=== PATIENT | male | born 1980 | race Caucasian/White ===

== ENCOUNTER 2022-11-09 07:08 | Emergency (ER) | payer BC, SELFPAY ==
[2022-11-09] VITALS (16 sets, daily range): BP systolic 124–207; BP diastolic 62–89; PULSE 54–87; RESP 14–18; TEMP 36.6; O2SAT 98–100
--- NOTE | ~2022-11-09 | CT_ITS ---
EXAMINATION: CTA chest abdomen pelvis DATE: 11/09/2022 10:21 INDICATION: Chest and abdominal pain TECHNIQUE: Computed tomographic angiography (CTA) of the chest, abdomen, and pelvis was performed wit h 100 mL Omnipque-350 intravenous contrast. Maximum intensity projection 3D-reconstructions of the ao rta and other arteries were constructed by the technologist on a separate workstation. The dose-lengt h product (DLP) was 1166.09 mGy-cm. Automated exposure control and iterative reconstruction technique were employed. COMPARISON: None. FINDINGS: CHEST CTA: No aneurysm or dissection. There is mild dependent atelectasis. There is a 7 mm nodule of the right l ower lobe. No pleural effusion or pneumothorax. No pathologically enlarged thoracic lymph nodes are i dentified. The heart size is normal. There are changes of anterior fusion at C6-7. ABDOMEN AND PELVIS CTA: No aneurysm or dissection. The celiac axis, superior mesenteric artery, and inferior mesenteric arter y are normal at their origins. There are two left and one right renal arteries. The liver, spleen, pa ncreas, gallbladder, and adrenal glands are normal. The kidneys are unremarkable. No pathologically e nlarged abdominal or pelvic lymph nodes are identified. No free intraperitoneal gas or evidence of natanael wel obstruction. IMPRESSION: 1. No aneurysm or dissection of the aorta. 2. No acute abnormality of the chest, abdomen, or pelvis. Reviewed, dictated and finalized at location F.
--- NOTE | ~2022-11-09 | XR_ITS ---
EXAMINATION: XR chest 2V DATE: 11/09/2022 08:20 INDICATION: Chest pain TECHNIQUE: PA and lateral views of the chest are obtained. COMPARISON: None available FINDINGS: The lungs are free of acute opacities. No pleural effusion or pneumothorax. The cardiomedia stinal silhouette is normal. There is mild thoracic spondylosis. There are surgical changes of the lo wer cervical spine. IMPRESSION: 1. No acute cardiopulmonary abnormality. Reviewed, dictated and finalized at location F.
--- NOTE | 2022-11-09 07:14 | ECG_ITS ---
Measurements Intervals [place] Rate: 57 P: 58 TN: 174 QRS: -52 QRSD: 118 T: 54 QT: 410 QTc: 401 Interpretive Statements SINUS BRADYCARDIA LEFT ANTERIOR FASCICULAR BLOCK [QRS AXIS <= -45, QR IN I, RS IN II] ABNORMAL ECG NO PREVIOUS ECG AVAILABLE FOR COMPARISON Electronically Signed On 11-09-2022 9:30:14 CDT by Jose Martin Jones M.D.
[2022-11-09] MEDS: ASPIRIN 81 MG CHEWABLE TABLET 324 MG PO (07:42)
[2022-11-09] MEDS: NITROGLYCERIN SL 0.4 MG TABLET SUBLINGUAL (07:43)
--- NOTE | 2022-11-09 07:44 | ED.CHESTPAIN ---
HPI - Chest Pain General Chief Complaint: Chest Pain Stated Complaint: chest pressure Time Seen by Provider: 11/09/22 07:10 Source: patient and RN notes reviewed Mode of arrival: ambulatory Limitations: no limitations History of Present Illness HPI narrative: This is a 42 year old male who presents for evaluation of chest pain. Patient states he developed chest [place] He states this pressure has been nonradiating and constant. He is unable to state what makes pain better or worse. He states that he has tried taking his Xanax due to history of anxiety. He reports his blood pressure has been more elevated to 150s and HR up to the 90s. He denies associated shortness of breath, dizziness, nausea, vomiting. He takes testosterone supplementation to build muscle mass. HE also takes another medication for muscle mass. Denies calf pain or leg swelling. Related Data Allergies Allergy/AdvReac Type Severity Reaction Status Date / Time No Known Allergies Allergy Verified 11/09/22 07:23 Review of Systems Constitutional: Constitutional: Denies weakness Cardiovascular: Cardiovascular: Reports chest pain, Denies syncope, Denies rapid heart rate, Denies irregular heart rhythm, Denies leg edema and Denies dyspnea Respiratory: Respiratory: Denies chest congestion, Denies hemoptysis, Denies excessive phlegm production and Denies dyspnea Gastrointestinal: Gastrointestinal: Denies abdominal pain, Denies hematochezia, Denies diarrhea and Denies vomiting Genitourinary: Genitourinary: Denies hematuria, Denies dysuria, Denies penile discharge and Denies testicular pain Musculoskeletal: Musculoskeletal: Denies joint swelling, Denies loss of height and Denies muscle weakness Neurologic: Denies syncope, Denies focal weakness and Denies weakness PMFSH Past Medical History Medical History (Updated 11/09/22 @ 11:23 by Talia Amado MD) Anxiety Social History Social History (Updated 11/09/22 @ 07:45 by Talia Amado MD) Smoking status: Never smoker Alcohol intake: current Alcohol use details: socially Substance use: never Exam Const: General: no acute distress and alert Nutritional Appearance: well nourished Orientation/consciousness: patient oriented x3 Limitations: no limitations HENMT: Head: normal to inspection Face and sinus: normal facial exam Eyes: EOM: EOMs intact bilaterally Chest: Chest palpation & inspection: normal inspection of the chest Resp: Effort & Inspection: normal respiratory effort Auscultation: clear to auscultation bilaterally Cardio: Rate: regular rate Rhythm: regular rhythm Heart sounds: no murmurs GI: GI Palp: Yes Soft to palpation, No Tenderness to palpation present (GI), No Guarding due to palpation present (GI) and No Rigid due to palpation Auscultation: normal bowel sounds Back/Spine/Pelvis: Back: no CVA tenderness Skin: General skin exam: normal color Rashes: no rashes Wounds: no wounds Neuro: General: patient oriented x3, moves all extremities and CN's II-XI intact bilaterally Extrem: General: normal to inspection, no clubbing, cyanosis or edema and no pedal edema Psych: Mental Status: mental status grossly normal Affect: normal affect Attitude: cooperative Course Reevaluation(s) Reevaluation #1: I Discussed with patient that labs and imaging have been unremarkable. No IN. Heart score 1 so will discharge. Pain is not anginal. I recommend discussion with doctors about hold his testosterone. Date: 11/09/22 Time: 11:22 Vital Signs Vital signs: Vital Signs Temperature 98 F 11/09/22 07:16 Pulse Rate 69 11/09/22 07:16 Respiratory Rate 18 11/09/22 07:16 Blood Pressure 151/89 H 11/09/22 07:16 Pulse Oximetry 100 11/09/22 07:16 Oxygen Delivery Room Air 11/09/22 07:16 Temperature 97.9 F 11/09/22 08:53 Pulse Rate 55 L 11/09/22 11:01 Respiratory Rate 16 11/09/22 11:01 Blood Pressure 151/79
[2022-11-09 07:52] LABS: Basophils Percent Auto 0.2 % (0.2-1.2); Eosinophils Absolute Auto 0.1 K/mm3 (0-0.3); Eosinophils Percent Auto 1.1 % (0-4.4); Hematocrit 45.5 % (42.0-52.0); Immature Granulocyte Absolute 0.01 K/mm3 (0.00-0.031); Immature Granulocyte Percent A 0.2 % (0-0.5); Immature Platelet Fraction Pct 4.1 % (0.9-11.2); Lymphocytes Absolute Auto 0.76 K/mm3 (0.9-3.2); Lymphocytes Percent Auto 17.1 % (18.3-44.2); Mean Corpuscular HGB Conc 35.2 g/dl (32-36); Mean Corpuscular Hemoglobin 31.6 pg (26-34); Mean Corpuscular Volume 89.7 fl (80-100); Mean Platelet Volume 10.1 fl (7.4-10.4); Monocytes Absolute Auto 0.5 K/mm3 (0.1-0.6); Monocytes Percent Auto 10.3 % (2.6-8.5); Neutrophils Absolute Auto 3.2 K/mm3 (1.3-6.7); Neutrophils Percent Auto 71.1 % (45.5-73.1); Platelet Count Result 142 k/mm3 (150-375); Red Blood Count 5.07 M/mm3 (4.6-6.20); Red Cell Distribution Width 12.4 % (11.5-14.5); White Blood Count 4.5 K/mm3 (4.5-10.0)
[2022-11-09 07:53] LABS: Alanine Aminotransferase 35 U/L (6-50); Albumin Level 4.5 g/dL (3.5-5.1); Alkaline Phosphatase 53 U/L (38-126); Anion Gap 3 mmol/L (8-16); Aspartate Amino Transferase 42 U/L (17-59); Bilirubin,Total 2.5 mg/dL (0.2-1.3); Blood Urea Nitrogen 12 mg/dL (9-20); Carbon Dioxide 30 mmol/L (22-30); Chloride 104 mmol/L (98-107); Estimated CRCL calculation 87 ml/min; Estimated Glomerular Filt Rate > 60; Glucose 106 mg/dL (65-110); Lipase 51 U/L (23-300); Potassium 4.2 mmol/L (3.4-5.0); Sodium 137 mmol/L (137-145)
[2022-11-09 08:04] LABS: Troponin I 0.016 ng/mL (0.000-0.034)
[2022-11-09 08:24] LABS: INR 1.1; Prothrombin Time 14.6 Seconds (11.1-14.7)
[2022-11-09 08:25] LABS: Partial Thromboplastin Time 31.3 SECONDS (22.3-36.8)
[2022-11-09 08:29] LABS: D Dimer 0.27 ug/mL (<0.48)
[2022-11-09 11:20] LABS: Troponin I < 0.012 ng/mL (0.000-0.034)
== END 2022-11-09 11:38 | disposition home or self-care (01) ==
PROVIDERS: Emergency Provider General Practice
DX: R07.89 Other chest pain (principal); R91.1 Solitary pulmonary nodule; R00.1 Bradycardia, unspecified; I44.4 Left anterior fascicular block
CPT/HCPCS: 36415; 71046; 71275; 74174; 80053; 83690; 84484; 85025; 85055; 85380; 85610; 85730; 93005; 99284; A9270; Q9967

== ENCOUNTER 2024-08-30 13:43 | Emergency (ER) | payer BC, SELFPAY ==
--- NOTE | ~2024-08-30 | XR_ITS ---
EXAM/PROCEDURE: XR chest 2V - 08/30/2024 14:25 CDT HISTORY: 43 years old Male with cp TECHNIQUE: Two view(s) of the chest. COMPARISON: None available. FINDINGS: LUNGS/ PLEURA: No focal consolidation. No appreciable pneumothorax or large pleural effusion. HEART/ MEDIASTINUM: Heart appears normal in size. BONES: No acute osseous abnormality. Partially visualized ACDF. OTHER: Visualized upper abdomen is unremarkable. IMPRESSION: No acute process. Reviewed, dictated and finalized at location A. IMPRESSION: No acute process.
--- OUTSIDE RECORDS SUMMARY | 2024-08-30 13:49 | XMS_ITS | Continuity of Care Document ---
Author Organization [facility] Address [address] [facility] [address] [place] [address] Phone Care Team Providers Care Acidizer Helper Name Role Phone Joel Erazo MD Unavailable Unavaila ble Allergies, Adverse Reactions, Alerts Substance Reaction Status Criticality No Known Allergies Active No Inform ation Medications Medication Instructions Dosage Effective Dates (start - stop) Status Comments Percocet 5 mg-325 mg tablet take 1 tablet by oral route every 6 hours as needed 1.00 tablet - Active cyclobenzaprine 10 mg tablet take 1 tablet by oral route 3 times every day 10 MG - Active gabapentin 100 mg capsule take 1 Capsule by oral route 2 times every day 100 MG - Active gabapentin 600 mg tablet TAKE 1 TO 2 TABLETS BY MOUTH 3 TIMES A DAY - Active Procedures Procedure Date OFFICE/OUTPATIENT VISIT NEW OFFICE/OUTPATIENT VISIT EST OFFICE/OUTPATIENT VISIT EST OFFICE/OUTPATIENT VISIT EST OFFICE/OUTPATIENT VISIT NEW OFFICE/OUTPATIENT VISIT EST OFFICE/OUTPATIENT VISIT EST OFFICE/OUTPATIENT VISIT EST OFFICE/OUTPATIENT VISIT EST OFFICE/OUTPATIENT VISIT EST OFFICE/OUTPATIENT VISIT EST OFFICE/OUTPATIENT VISIT EST OFFICE/OUTPATIENT VISIT EST OFFICE/OUTPATIENT VISIT EST OFFICE/OUTPATIENT VISIT EST OFFICE/OUTPATIENT VISIT EST OFFICE/OUTPATIENT VISIT EST OFFICE/OUTPATIENT VISIT EST OFFICE/OUTPATIENT VISIT EST OFFICE/OUTPATIENT VISIT EST POSTOP FOLLOW-UP VISIT OFFICE/OUTPATIENT VISIT EST OFFICE/OUTPATIENT VISIT EST OFFICE/OUTPATIENT VISIT EST OFFICE/OUTPATIENT VISIT EST OFFICE/OUTPATIENT VISIT EST OFFICE/OUTPATIENT VISIT EST OFFICE/OUTPATIENT VISIT EST OFFICE/OUTPATIENT VISIT EST OFFICE/OUTPATIENT VISIT EST OFFICE/OUTPATIENT VISIT EST OFFICE/OUTPATIENT VISIT EST OFFICE/OUTPATIENT VISIT EST OFFICE/OUTPATIENT VISIT EST POSTOP FOLLOW-UP VISIT OFFICE/OUTPATIENT VISIT NEW OFFICE/OUTPATIENT VISIT EST OFFICE/OUTPATIENT VISIT EST OFFICE/OUTPATIENT VISIT EST OFFICE/OUTPATIENT VISIT EST OFFICE/OUTPATIENT VISIT EST OFFICE/OUTPATIENT VISIT EST OFFICE/OUTPATIENT VISIT EST OFFICE/OUTPATIENT VISIT NEW Advance Directives Directive Yes / No Effective Date File Name No Information Encounters Encounter Description Practice Location Reason(s) For Visit Diagnoses Date Provider Providers Copied on Encounter [facility], [address], [address], tel:[phone] [facility] No Information Sep-0 0 Kacey Maldonado. [address], [place], [address]. tel:[phone] OFFICE/OUTPA TIENT VISIT NEW [facility], [address] [facility] [address], [place], [address], tel:[phone] [facility] Right lateral epicondyliti sBody mass index (BMI) 25.0-25.9, adult Sep-0 4-202 0 Pinannaaneni Joel. [address], [place], [address]. tel:[phone] [facility], [address], [address], [place] tel:[phone] [facility] No Information 0 Cecilio Hanley. [address] [facility], [place], [place], [address]. tel:[phone] OFFICE/OUTPA TIENT VISIT EST [facility], [address], [address], [place] tel:[phone] [facility] Other intervertebr al disc displacement , lumbar regionSpinal stenosis, lumbar region without neurogenic claudication Myalgia, other site 0 Cecilio Hanley. [address] [facility], [place], [place], [address]. tel:[phone] OFFICE/OUTPA TIENT VISIT EST [facility], [address], [address], [place] tel:[phone] [facility] Other chronic postop painSpondylo sis without myelopathy or radiculopath y, lumbosacral regionOther intervertebr al disc displacement , lumbar regionCervic algiaSpinal stenosis, lumbar region without neurogenic claudication 0 Cecilio Hanley. [address] [facility], [place], [place], [address]. tel:[phone] OFFICE/OUTPA TIENT VISIT EST [facility], [address] [place] [address], [place], [address], [place] tel:[phone] [facility] Other chronic postop painLow back painCervical sobia Dec- 9 Joslyn Perla. [address] [facility] [address], [place], [place], [address]. tel:[phone] OFFICE/OUTPA TIENT VISIT [facility], [address] [facility] [address], [place], [address], [place] tel:[phone] [facility] Body mass index (BMI) 25.0-25.9, adultSprain of left rotator cuff capsule, initial encounter 9 Magi Benito. [address] [facility] [address], [place], [place], [address]. tel:[phone] OFFICE/OUTPA TIENT VISIT [facility], [address] [facility] [address], [place], [address], [place] tel:[phone] [facility] Lumbago with sciatica, left sideOther intervertebr al disc displacement , lumbar regionPain in left shoulder 9 Joslyn Perla. [address] [facility] [address], [place], [place], [address]. tel:[phone] OFFICE/OUTPA TIENT VISIT [facility], [address] [facility] [address], [place], [address], [place] tel:[phone] [facility] Other intervertebr al disc displacement , lumbar regionLumbag o with sciatica, left sideLumbago with sciatica, right side 9 Joslyn Perla. [address] [facility] [address], [place], [place], [address]. tel:[phone] OFFICE/OUTPA TIENT VISIT [facility], [address] [facility] [address], [place], [address], [place] tel:[phone] [facility] Lumbago with sciatica, right sideLumbago with sciatica, left sideOther intervertebr al disc displacement , lumbar region May- 9 Yadira Mcbride. [address] [facility], [place], [place], [address]. [phone] OFFICE/OUTPA TIENT VISIT [facility], [address] [facility] [address], [place], [address], [place] tel:[phone] [facility] Lumbago with sciatica, left sideLumbago with sciatica, right side 9 Yadira Mcbride. [address] [place], [place], [address]. tel:[phone] OFFICE/OUTPA TIENT VISIT [facility], [address] [facility] [address], [place], [address], [place] tel:[phone] [facility] Spondylosis without myelopathy or radiculopath y, cervical regionSpondy losis of lumbosacral region without myelopathy or radiculopath yCervicalgia Other specified dorsopathies , cervical regionLow back pain 9 Joslyn Perla. [address] [employer] [address], [place], [place], [address]. tel:[phone] OFFICE/OUTPA TIENT VISIT [facility], [address] [place] [address], [place], [address], [place] tel:[phone] [facility] Low back painCervical giaSpondylos is without myelopathy or radiculopath y, cervical regionSpondy losis of lumbosacral region without myelopathy or radiculopath y 8 Joslyn Perla. [address] [facility] [address], [place], [place], [address]. tel:[phone] OFFICE/OUTPA TIENT VISIT [facility], [address] [facility] [address], [place], [address], [place] tel:[phone] [facility] Spondylosis of lumbosacral region without myelopathy or radiculopath ySpondylosis without myelopathy or radiculopath y, cervical regionOther specified dorsopathies , cervical regionCervic algiaLow back painBody mass index (BMI) 26.0-26.9, adult 8 Joslyn Perla. [address] [employer] [address], [place], [place], [address]. tel:[phone] OFFICE/OUTPA TIENT VISIT [facility], [address] [facility] [address], [place], [address], [place] tel:[phone] [facility] CervicalgiaS regis enthesopathy of thoracic regionOther specified dorsopathies , cervical region Apr-0 8 Joslyn Perla. [address] [employer] [address], [place], [place], [address]. tel:[phone] OFFICE/OUTPA TIENT VISIT [facility], [address] [facility] [address], [place], [address], [place] tel:[phone] [facility] Body mass index (BMI) 25.0-25.9, adultLow back painSpondylo sis of lumbosacral region without myelopathy or radiculopath y 8 Joslyn Perla. [address] [place] [address] [address], [place], [place], [address]. tel:[phone] OFFICE/OUTPA TIENT VISIT [facility], [address], [address], [place] tel:[phone] [facility] Low back painCervical sobia 7 Yadira Mcbride. [address] [place] [address], [id number]. tel:[phone] OFFICE/OUTPA TIENT VISIT [facility], [address] [facility] [address], [place], [address], [place] tel:[phone] [facility] CervicalgiaL ow back painSpondylo sis of lumbosacral region without myelopathy or radiculopath yOther chronic postprocedur al pain Sep-0 7 Yadira Mcbride. [address] [place] [address], [id number]. tel:[phone] Referring Provider: Reed May, [address] [place] [address], [address] . tel:[phone] OFFICE/OUTPA TIENT VISIT [facility], [address] [place] [address], [place], [address], [place] tel:[phone] [facility] CervicalgiaR adiculopathy , cervical regionOther chronic postprocedur al pain Sep- 8- 7 Joslyn Perla. [address] [facility] [address], [place], [place], [address]. tel:[phone] [facility], [address] [place] [address] [address], [place], [address], [place] tel:[phone] [facility] [address] CervicalgiaO ther chronic postprocedur al painRadiculo jabier, cervical region Sep- 4-201 7 Yadira Mcbride. [address] [place], [place], [address]. tel:[phone] OFFICE/OUTPA TIENT VISIT EST [facility], [address] [place] [address], [address], [place] tel:[phone] [facility] Spondylosis of lumbar region without myelopathy or radiculopath yLow back pain 3 0-201 7 Joslyn Watersy. [address] [place], [place] [address], [place], [place], [address]. tel:[phone] OFFICE/OUTPA TIENT VISIT [facility], [address] [place] [address], [address], [place] tel:[phone] [facility] Other chronic postprocedur al painCervical giaLow back painSpondylo sis of lumbar region without myelopathy or radiculopath y Apr-0 8-201 7 Yadirablake Mcbirde. [address] [place], [place], [address]. tel:[phone] OFFICE/OUTPA TIENT VISIT [facility], [address] [place] [address], [address], [place] tel:[phone] [facility] Spondylosis of lumbar region without myelopathy or radiculopath yLow back painCervical giaOther chronic postprocedur al pain Feb-2 5-201 7 Yadirablake Mcbride. [address] [place], [place], [address]. tel:[phone] [facility], [address] [place] [address], [address], [place] tel:[phone] [facility] Low back painSpondylo sis of lumbar region without myelopathy or radiculopath y Feb-0 9-201 7 Yadira Mcbride. [address] [place], [place], [address]. tel:[phone] OFFICE/OUTPA TIENT VISIT [facility], [address], [address], [place] tel:[phone] [facility] Low back painSpondylo sis of lumbar region without myelopathy or radiculopath yMyalgiaSpin al enthesopathy of lumbar region 6 Joslyn Perla. [address] [place] [address] [address], [place], [place], [address]. tel:[phone] OFFICE/OUTPA TIENT VISIT [facility], [address], [address], [place] tel:[phone] [facility] Lumbago with sciatica, right sideLow back painPain in thoracic spineSpondyl osis of lumbar region without myelopathy or radiculopath y 6 Joslyn Perla. [address] [place] [address] [address], [place], [place], [address]. tel:[phone] OFFICE/OUTPA TIENT VISIT [facility], [address], [address], [place] tel:[phone] [facility] CervicalgiaL umbago with sciatica, right sideOther intervertebr al disc displacement , lumbar regionOther chronic postprocedur al pain 6 Yadira Mcbride. [address] [place], [place], [address]. tel:[phone] OFFICE/OUTPA TIENT VISIT [facility], [address] [place] [address], [address], [place] tel:[phone] [facility] Other intervertebr al disc displacement , lumbar regionCervic algiaRadicul opathy, cervical regionLumbag o with sciatica, right sideLumbago with sciatica, left sideOther chronic postprocedur al pain 6 Joslyn Perla. [address] [place] [address] [address], [place], [place], [address]. tel:[phone] [facility], [address], [address], [place] tel:[phone] [facility] Spondylosis of lumbar region without myelopathy or radiculopath yLow back pain May-1 0-201 6 Yadira Reed. [address] [place], [place], [address]. tel:[phone] OFFICE/OUTPA TIENT VISIT EST [facility], [address], [address], [place] tel:[phone] [facility] Low back painSpondylo sis of lumbar region without myelopathy or radiculopath y May-0 3-201 6 Joslyn Perla. [address] [place] [address] [address], [place], [place], [address]. tel:[phone] OFFICE/OUTPA TIENT VISIT EST [facility], [address] [place] [address], [address], [place] tel:[phone] [facility] Spondylosis of lumbar region without myelopathy or radiculopath yLow back pain Apr-2 6-201 6 Yadira Reed. [address] [place], [place], [address]. tel:[phone] [facility], [address] [place] [address], [address], [place] tel:[phone] [facility] Low back painSpondylo sis of lumbar region without myelopathy or radiculopath y Apr-0 4-201 6 Yadira Reed. [address] [place], [place], [address]. tel:[phone] OFFICE/OUTPA TIENT VISIT EST [facility], [address] [place] [address], [address], [place] tel:[phone] [facility] Low back painSpondylo sis of lumbar region without myelopathy or radiculopath ySpondylosis without myelopathy or radiculopath y, cervical regionCervic algia Apr- 8- 6 Joslyn Perla. [address] [place] [address] [address], [place], [place], [address]. tel:[phone] [facility], [address], [address], [place] tel:[phone] [facility] Spondylosis without myelopathy or radiculopath y, cervical regionSpondy losis of lumbar region without myelopathy or radiculopath yLow back painCervical sobia Apr- 8- 6 Yadira Reed. [address] [place], [place], [address]. tel:[phone] OFFICE/OUTPA TIENT VISIT EST [facility], [address] [place] [address], [address], [place] tel:[phone] [facility] Other chronic painSpondylo sis without myelopathy or radiculopath y, cervical regionSpondy losis of lumbar region without myelopathy or radiculopath yCervicalgia Low back pain 6 Yadira Reed. [address] [place], [place], [address]. tel:[phone] [facility], [address] [place] [address], [address], [place] tel:[phone] [facility] Other chronic painSpondylo sis without myelopathy or radiculopath y, cervical regionCervic algia 2- 6 Yadira Reed. [address] [place], [place], [address]. tel:[phone] OFFICE/OUTPA TIENT VISIT [facility], [address] [place] [address], [address], [place] tel:[phone] [facility] Spondylosis without myelopathy or radiculopath y, cervical regionCervic algiaOther chronic painSpinal enthesopathy , lumbar region Mar- 6-201 6 Yadira Reed. [address] [place] [address], [address]. tel:[phone] OFFICE/OUTPA TIENT VISIT [facility], [address], [address], [place] tel:[phone] [facility] CervicalgiaL ow back painOther specified dorsopathies , cervical regionRadicu lopathy of thoracic region 0 4201 6 Joslyn Perla. [address] [facility] [address], [place], [place], [address]. tel:[phone] OFFICE/OUTPA TIENT VISIT [facility], [address], [address], [place] tel:[phone] [facility] Low back painOther specified dorsopathies , cervical regionCervic algiaSpinal enthesopathy , lumbar region 0-201 5 Joslyn Perla. [address] [facility] [address], [place], [place], [address]. tel:[phone] OFFICE/OUTPA TIENT VISIT [facility], [address], [address], [place] tel:[phone] [facility] Other specified dorsopathies , cervical regionSpinal enthesopathy , lumbar regionLow back painCervical sobia 6 5 Joslyn Perla. [address] [facility] [address], [place], [place], [address]. tel:[phone] OFFICE/OUTPA TIENT VISIT [facility], [address] [place] [address], [address], [place] tel:[phone] [facility] Other chronic postoperativ e painEnthesop athy, spinalCervic al spondylosis without myelopathyCe rvicalgiaLum bago 6- 5 Yadira Mcbride. [address] [place], [place], [address]. tel:[phone] [facility], [address] [place] [address], [address], [place] tel:[phone] [facility] f/u L thumb fx (chief complaint) Closed fracture of middle or proximal phalanx or pTrigger finger (acquired) 5 Fatimah Kitchen. [address] [place], [place], [address]. tel:[phone] OFFICE/OUTPA TIENT VISIT [facility], [address], [address], [place] tel:[phone] [facility] eval L thumb fx (chief complaint) Closed fracture of middle or proximal phalanx or p 5 Fatimah Fidelina. [address] [place], [place], [address]. tel:[phone] OFFICE/OUTPA TIENT VISIT [facility], [address], [address], [place] tel:[phone] [facility] Other chronic postoperativ e painEnthesop athy, spinalMuscul oskeletal disorder and symptoms referable to neckCervical giaLumbago 5 Yadira Mcbride. [address] [place], [place], [address]. tel:[phone] OFFICE/OUTPA TIENT VISIT [facility], [address], [address], [place] tel:[phone] [facility] Musculoskele abdoulaye disorder and symptoms referable to neckCervical giaOther chronic postoperativ e painCervical spondylosis without myelopathy 5 Joslyn Perla. [address] [facility], [place], [address]. tel:[phone] OFFICE/OUTPA TIENT VISIT [facility], [address], [address], [place] tel:[phone] [facility] CervicalgiaL umbagoOther chronic postoperativ e pain 5 Yadira Mcbride. [address] [place], [place], [address]. tel:[phone] [facility], [address] [place] [address], [address], [place] tel:[phone] [facility] CervicalgiaL umbagoEnthes opathy, spinalCervic al spondylosis without myelopathyOt her chronic postoperativ e pain 5 Yadira Reed. [address] [place], [place], [address]. tel:[phone] [facility], [address] [place] [address], [address], [place] tel:[phone] [facility] Cervical spondylosis without myelopathy 5 Yadira Reed. [address] [place], [place], [address]. tel:[phone] OFFICE/OUTPA TIENT VISIT [facility], [address] [place] [address], [address], [place] tel:[phone] [facility] CervicalgiaC ervical spondylosis without myelopathyMu sculoskeleta l disorder and symptoms referable to neck 4 Joslyn Perla. [address] [place], [place] [address], [place], [address]. tel:[phone] OFFICE/OUTPA TIENT VISIT [facility], [address] [place] [address], [address], [place] tel:[phone] [facility] Lumbago - 4 Yadira Reed. [address] [place], [place], [address]. tel:[phone] OFFICE/OUTPA TIENT VISIT [facility], [address] [place] [address], [address], [place] tel:[phone] [facility] LumbagoSpond ylosis of lumbar region without myelopathy orCervical spondylosis without myelopathyCe rvicalgia 0-201 4 Joslyn Perla. [address] [facility] [address], [place], [address]. tel:[phone] OFFICE/OUTPA TIENT VISIT [facility], [address] [place] [address], [facility], tel:[phone] [facility] NECK FOLLOW UP (chief complaint)T PI LASTED 2 WEEKS - PAIN HAS NOW RETURNED (chief complaint)S TILL UNABLE TO SLEEP (chief complaint)D OESNT SEE A DIFFERENCE WITH LYRICA (chief complaint) CervicalgiaE nthesopathy, spinalOther chronic postoperativ e painCervical spondylosis without myelopathyLo w back pain 4 Yadira Mcbride. [address] [place], [place], [address]. tel:[phone] OFFICE/OUTPA TIENT VISIT [facility], [address] [place] [address], [facility], tel:[phone] [facility] Other chronic postoperativ e painEnthesop athy, spinalCervic algia 4 Yadira Mcbride. [address] [place], [place], [address]. tel:[phone] Family History Family Member Type Diagnosis Age At Onset Mother Problem (finding) Alive and well Mother Problem (finding) Alive and well Mother Problem (finding) Alive and well Mother Problem (finding) Alive and well Payers Payer name Insurance type Covered green party ID Authorvannessaa titracey(s) Blue Access PPO E2 OT [id number] Social History Type Description Quantity Date Captured Comments Alcohol Use Details Unknown Caffeine Use Details Unknown Tobacco Use Status No Information Smoking Status No Information Sex Male Chief Complaint And Reason For Visit No Information Reason For Referral Reason For Referral No Information Plan Of Treatment Date Type Action Status Referral Ordered: MRI SPI CANAL&CNTS LMBR C-MATRL Appointment date/timeframe: 05/24/2018 ordered Referral Ordered: MRI SPI CANAL&CNTS CRV C-MATRL spine, cervical Appointment date/timeframe: 10/08/2016 ordered Referral Ordered: DESTROY LUMB/SAC FACET JNT Appointment date/timeframe: 12/24/2015 ordered Referral Ordered: MRI SPI CANAL&CNTS LMBR C-MATRL spine, lumbar Appointment date/timeframe: 06/25/2015 ordered Referral Ordered: DESTROY LUMB/SAC FACET JNT Bilateral spine, cervical Appointment date/timeframe: 05/14/2015 ordered Referral Ordered: DESTROY CERV/THOR FACET JNT spine, cervical Appointment date/timeframe: 04/02/2015 ordered Referral Ordered: RADEX FNGR MINIMUM 2 VIEWS LT ordered Referral Ordered: DESTROY CERV/THOR FACET JNT Appointment date/timeframe: 03/02/2014 ordered Referral Ordered: MRI SPI CANAL&CNTS LMBR C-MATRL Bilateral spine, lumbar ordered Referral Ordered: DESTROY CERV/THOR FACET JNT Bilateral spine, cervical Appointment date/timeframe: 12/19/2013 ordered Nutrition Recommendation Nutrition / feed ing management completed Nutrition Recommendation Nutrition / feed ing management completed History Of Present Illness Encounter Date Complaint History Of Prese nt Illness f/u L thumb fx eval L thumb fx NECK FOLLOW UP TPI LASTED 2 WEEKS - PAIN HAS NO W RETURNED STILL UNABLE TO SLEEP DOESNT SEE A DIFFERENCE WITH LYR ICA Functional Status Date Functional Assessmen t No Information Instructions Date Instruction Additional Infor mation Call for increase in pain Relate d to Right lateral epicondylitis Giving encouragement to exercise Related to Body mass index (BMI) 25.0-25.9, adult Giving encouragement to exercise Related to Body mass index (BMI) 25.0-25.9, adult Take medication as prescribed. R elated to Spondylosis of lumbosacral region without myelopathy or radiculopathy Avoid prolonged bed rest. Relate d to Spondylosis of lumbosacral region without myelopathy or radiculopathy Activity as tolerated. Related t o Spondylosis of lumbosacral region without myelopathy or radiculopathy Giving encouragement to exercise Related to Body mass index (BMI) 26.0-26.9, adult Giving encouragement to exercise Related to Body mass index (BMI) 25.0-25.9, adult Activity as tolerated. Related t o Spondylosis of lumbosacral region without myelopathy or radiculopathy Avoid prolonged bed rest. Relate d to Spondylosis of lumbosacral region without myelopathy or radiculopathy Take medication as prescribed. R elated to Spondylosis of lumbosacral region without myelopathy or radiculopathy Elevate extremity above heart. R elated to Closed fracture of middle or proximal phalanx or p Apply ice as tolerated. Related to Closed fracture of middle or proximal phalanx or p Immobilize as directed. Related to Closed fracture of middle or proximal phalanx or p Apply ice as tolerated. Related to Closed fracture of middle or proximal phalanx or p Immobilize as directed. Related to Closed fracture of middle or proximal phalanx or p Elevate extremity above heart. R elated to Closed fracture of middle or proximal phalanx or p Activity as tolerated. Related t o Lumbago Avoid prolonged bed rest. Relate d to Lumbago Activity as tolerated. Related t o Lumbago Avoid prolonged bed rest. Relate d to Lumbago Assessments Type Assessment Date No Information Patient Care Teams Name Effective Dates (start - stop) Status Members No Information
--- OUTSIDE RECORDS SUMMARY | 2024-08-30 13:49 | XMS_ITS | Continuity of Care Document ---
Author Organization [facility] Address [address] [place] [address] Phone Care Team Providers Care Aco Coordinator Name Role Phone Unavailable Unavailable Unavailable Procedures Procedure Date Balance Transfer Work Comp Advance Directives Directive Yes / No Effective Date File Name No Information Encounters Encounter Description Practice Location Reason(s) For Visit Diagnoses Date Provider Providers Copied on Encounter [facility], [address], [place], [place], [address], [place] tel:[phone] [facility] No Information Sep-0 8-200 6 No Information Family History Family Member Type Diagnosis Age At Onset No Information Payers Payer name Insurance type Covered alliance party ID Remigio chau(s) Bambi [facility] Medical Management [id number] Social History Type Description Quantity Date Captured Comments Sex Male Smoking Status No Information Chief Complaint And Reason For Visit No Information Reason For Referral Reason For Referral No Information History Of Present Illness Encounter Date Complaint History Of Prese nt Illness No Information Functional Status Date Functional Assessmen t No Information Instructions Date Instruction Additional Infor mation No Information Assessments Type Assessment Date No Information Patient Care Teams Name Effective Dates (start - stop) Status Members No Information
--- OUTSIDE RECORDS SUMMARY | 2024-08-30 13:49 | XMS_ITS | Continuity of Care Document ---
Author Organization [facility] Address [address] [place] [address] Phone Care Team Providers Care Health And Fitness Instructor Name Role Phone Unavailable Unavailable Unavailable Procedures Procedure Date Office/outpatient visit,est, [facility] [place] 2006 X-ray exam of neck spine, 4+ views X-ray exam of thoracic spine 3 view Advance Directives Directive Yes / No Effective Date File Name No Information Encounters Encounter Description Practice Location Reason(s) For Visit Diagnoses Date Provider Providers Copied on Encounter Office/outpat ient visit,est, [facility], [address], [place], [place], [address], [place] tel:[phone] [facility] No Information 0-200 7 No Information Family History Family Member Type Diagnosis Age At Onset No Information Payers Payer name Insurance type Covered constitution party ID Authoriza tion(s) [facility] [id number] Social History Type Description Quantity Date Captured [...]
[2024-08-30 13:54] VITALS: BP 164/88; PULSE 61; RESP 16; TEMP 36.6; O2SAT 100
--- NOTE | 2024-08-30 13:55 | ECG_ITS ---
Test Date: 2024-08-30 14:00:19 Measurements Intervals [place] Rate: 52 P: 21 PA: 171 QRS: -44 QRSD: 113 T: 57 QT: 428 QTc: 400 Interpretive Statements SINUS BRADYCARDIA MARKED LEFT AXIS DEVIATION [QRS AXIS < -30] INCOMPLETE RIGHT BUNDLE BRANCH BLOCK POSSIBLE SEPTAL MYOCARDIAL INFARCTION , OF INDETERMINATE AGE [30 ms Q WAVE IN V1/V2] No previous ECG available for comparison Electronically Signed On 08-30-2024 17:07:14 CDT by Kenneth Manzano M.D.
--- NOTE | 2024-08-30 14:07 | ED_ITS ---
HPI - Dizziness General Chief Complaint: Recheck/Abnormal Lab/Rx <Amena Jamie Pruitt APRN - Last Filed: 08/30/24 14:09> Stated Complaint: abn ekg <Amena Jamie Pruitt APRN - Last Filed: 08/30/24 14:09> Time Seen by Provider: 08/30/24 14:05 <Amenatom Pruitt APRN - Last Filed: 08/30/24 14:09> Focused HPI: Patient is a 43 year old male who presents to the ER with lightheadedness and dizziness. He reports he was at work yesterday working in an area that did not have air conditioning. Patient reports his symptoms started last night. He reports he went to [facility] today for evaluation and they advised him to come here for further workup. Patient denies any medical history relevant to this ER visit. He denies any chest pain, lower extremity swelling, or recent fevers. GENERAL: Well-appearing, well-nourished, and in no acute distress. HEAD: Normocephalic, atraumatic. CHEST: Clear to auscultation. ?No respiratory distress. HEART: Regular rate and rhythm.? NEURO: ?Alert and oriented x3. Patient screened in triage and initial orders placed.? ?Additional care and disposition to be based upon?diagnostic testing and treatment. <Amena Jamie Pruitt APRN - Last Filed: 08/30/24 14:09> Related Data Allergies/Adverse Reactions: Allergies Allergy/AdvReac Type Severity Reaction Status Date / Time No Known Allergies Allergy Verified 11/09/22 07:23 <Amenatom Pruitt APRN - Last Filed: 08/30/24 14:09> Review of Systems 2 Review of Systems: All systems reviewed & are unremarkable except as noted in HPI and below <Tor Hardin MD - Last Filed: 08/30/24 22:01> PMFSH Past Medical History Medical History: Medical History (Updated 08/30/24 @ 18:59 by Tor Hardin MD) Anxiety <Amena Pruitt APRN - Last Filed: 08/30/24 14:09> Social History Social History: Social History (Updated 11/09/22 @ 07:45 by Talia Amado MD) Smoking status: Never smoker Alcohol intake: current Alcohol use details: socially Substance use: never <Amena Pruitt APRN - Last Filed: 08/30/24 14:09> Exam 2 Narrative: APPEARANCE: Well appearing, no pain, no distress, well-nourished. HEAD: normocephalic, atraumatic. EYES: PERRLA/EOMI, conjunctivae clear. NOSE: Normal no drainage EARS:TMS clear with good light reflex. THROAT: Pharynx clear, no exudate. NECK: Supple. No adenopathy, no masses. RESPIRATORY: Airway patent, respirations nonlabored. Clear to auscultation bilaterally, no rales, rhonchi, wheezing. CARDIOVASCULAR: Regular rate and rhythm without murmurs rubs or gallops. ABDOMINAL: Soft, nontender, nondistended, normal bowel sounds MUSCULOSKELETAL: Moves all extremities. Strength/ROM intact, No edema, No calf tenderness. NEURO: Alert. Cranial nerves II through XII intact. Good gait. Good coordination SKIN: Warm, dry. Normal Color <Tor Hardin MD - Last Filed: 08/30/24 22:01> Course Vital Signs Vital signs: Vital Signs Temperature 97.8 F 08/30/24 13:54 Pulse Rate 61 08/30/24 13:54 Respiratory Rate 16 08/30/24 13:54 Blood Pressure 164/88 H 08/30/24 13:54 Pulse Oximetry 100 08/30/24 13:54 Oxygen Delivery Room Air 08/30/24 13:54 Temperature 97.9 F 08/30/24 19:18 Pulse Rate 50 L 08/30/24 19:18 Respiratory Rate 16 08/30/24 19:18 Blood Pressure 126/78 08/30/24 19:18 Pulse Oximetry 99 08/30/24 19:18 Oxygen Delivery Room Air 08/30/24 13:54 <Amena Pruitt APRN - Last Filed: 08/30/24 14:09> Vital Signs Temperature 97.8 F 08/30/24 13:54 Pulse Rate 61 08/30/24 13:54 Respiratory Rate 16 08/30/24 13:54 Blood Pressure 164/88 H 08/30/24 13:54 Pulse Oximetry 100 08/30/24 13:54 Oxygen Delivery Room Air 08/30/24 13:54 Temperature 97.9 F 08/30/24 19:18 Pulse Rate 50 L 08/30/24 19:18 Respiratory Rate 16 08/30/24 19:18 Blood Pressure 126/78 08/30/24 19:18 Pulse Oximetry 99 08/30/24 19:18 Oxygen Delivery Room Air 08/30/24 13:54 <Tor Hardin MD - Last Filed: 08/30/24 22:01> MDM - Dizziness MDM Narrative Medical decision making narrative: 43-year-old male presents emergency department for evaluation for dehydration and EKG changes. Patient initially presented to the urgent care for evaluation for suspected dehydration but due to concern for EKG changes he was referred to the emergency department. Patient declined any IV fluids at this time. Patient's EKG today was very similar to an old EKG on file. <Tor Hardin MD - Last Filed: 08/30/24 22:01> Differential Diagnosis Differential diagnosis: Likely other <Tor Hardin MD - Last Filed: 08/30/24 22:01> Lab Data Attestation: I reviewed the patient's lab results. <Tor Hardin MD - Last Filed: 08/30/24 22:01> Result diagrams: 08/30/24 14:09 08/30/24 14:09 <Amena Pruitt APRN - Last Filed: 08/30/24 14:09> Labs: Lab Results 08/30/24 08/30/24 Range/Units 14:09 16:41 WBC 5.2 (4.5-10.0) K/mm3 RBC 5.10 (4.6-6.20) M/mm3 Hgb 16.0 (14.0-18.0) g/dL Hct 46.3 (42.0-52.0) % MCV 90.8 (80-100) fl MCH 31.4 (26-34) pg MCHC 34.6 (32-36) g/dl RDW 12.1 (11.5-14.5) % Plt Count 143 L (150-375) k/mm3 MPV 10.4 (7.4-10.4) fl Immature Gran % (Auto) 0.2 (0-0.5) % Neut % (Auto) 70.2 (45.5-73.1) % Lymph % (Auto) 17.7 L (18.3-44.2) % [place] % (Auto) 10.5 H (2.6-8.5) % Eos % (Auto) 1.2 (0-4.4) % Baso % (Auto) 0.2 (0.2-1.2) % Lymph # (Auto) 0.91 (0.9-3.2) K/mm3 [place] # (Auto) 0.5 (0.1-0.6) K/mm3 Eos # (Auto) 0.1 (0-0.3) K/mm3 Baso # (Auto) 0.0 (0.0-0.1) K/mm3 Abs Immat Gran (auto) 0.01 (0.00-0.031) K/mm3 Absolute Neuts (auto) 3.6 (1.3-6.7) K/mm3 Absolute Nucleated RBC 0.000 (0.0-0.012) K/mm3 Nucleated RBC % 0.0 (0.0-0.2) % % Immature Plt Fraction 4.1 (0.9-11.2) % PT 14.5 (11.1-14.7) Seconds INR 1.1 APTT 30.1 (22.3-36.8) Seconds Sodium 138 (137-145) mmol/L Potassium 4.0 (3.4-5.0) mmol/L Chloride 104 (98-107) mmol/L Carbon Dioxide 27 (22-30) mmol/L Anion Gap 7 (4-12) mmol/L BUN 15 (9-20) mg/dL Creatinine 1.36 H (0.7-1.3) mg/dL Estim Creat Clear Calc 68 ml/min Estimated GFR 57 L (59 - ) Glucose 86 (65-110) mg/dL Calcium 9.1 (8.4-10.2) mg/dL Total Bilirubin 2.0 H (0.2-1.3) mg/dL AST 44 (17-59) U/L ALT 39 (6-50) U/L Alkaline Phosphatase 60 (38-126) U/L Troponin I < 0.012 < 0.012 (0.000-0.034) ng/mL Total Protein 7.0 (6.3-8.2) g/dL Albumin 4.4 (3.5-5.1) g/dL Lipase 50 (23-300) U/L <Amena Pruitt, KNOT TYING OPERATOR - Last Filed: 08/30/24 14:09> Lab Results 08/30/24 08/30/24 Range/Units 14:09 16:41 WBC 5.2 (4.5-10.0) K/mm3 RBC 5.10 (4.6-6.20) M/mm3 Hgb 16.0 (14.0-18.0) g/dL Hct 46.3 (42.0-52.0) % MCV 90.8 (80-100) fl MCH 31.4 (26-34) pg MCHC 34.6 (32-36) g/dl RDW 12.1 (11.5-14.5) % Plt Count 143 L (150-375) k/mm3 MPV 10.4 (7.4-10.4) fl Immature Gran % (Auto) 0.2 (0-0.5) % Neut % (Auto) 70.2 (45.5-73.1) % Lymph % (Auto) 17.7 L (18.3-44.2) % [place] % (Auto) 10.5 H (2.6-8.5) % Eos % (Auto) 1.2 (0-4.4) % Baso % (Auto) 0.2 (0.2-1.2) % Lymph # (Auto) 0.91 (0.9-3.2) K/mm3 [place] # (Auto) 0.5 (0.1-0.6) K/mm3 Eos # (Auto) 0.1 (0-0.3) K/mm3 Baso # (Auto) 0.0 (0.0-0.1) K/mm3 Abs Immat Gran (auto) 0.01 (0.00-0.031) K/mm3 Absolute Neuts (auto) 3.6 (1.3-6.7) K/mm3 Absolute Nucleated RBC 0.000 (0.0-0.012) K/mm3 Nucleated RBC % 0.0 (0.0-0.2) % % Immature Plt Fraction 4.1 (0.9-11.2) % PT 14.5 (11.1-14.7) Seconds INR 1.1 APTT 30.1 (22.3-36.8) Seconds Sodium 138 (137-145) mmol/L Potassium 4.0 (3.4-5.0) mmol/L Chloride 104 (98-107) mmol/L Carbon Dioxide 27 (22-30) mmol/L Anion Gap 7 (4-12) mmol/L BUN 15 (9-20) mg/dL Creatinine 1.36 H (0.7-1.3) mg/dL Estim Creat Clear Calc 68 ml/min Estimated GFR 57 L (59 - ) Glucose 86 (65-110) mg/dL Calcium 9.1 (8.4-10.2) mg/dL Total Bilirubin 2.0 H (0.2-1.3) mg/dL AST 44 (17-59) U/L ALT 39 (6-50) U/L Alkaline Phosphatase 60 (38-126) U/L Troponin I < 0.012 < 0.012 (0.000-0.034) ng/mL Total Protein 7.0 (6.3-8.2) g/dL Albumin 4.4 (3.5-5.1) g/dL Lipase 50 (23-300) U/L <Tor Hardin MD - Last Filed: 08/30/24 22:01> Discharge Plan Discharge Clinical Impression: EKG abnormalities <Amena Pruitt APRN - Last Filed: 08/30/24 14:09> Patient Disposition: Home <Amena Pruitt APRN - Last Filed: 08/30/24 14:09> Condition: Stable <Amena Pruitt APRN - Last Filed: 08/30/24 14:09> Instructions: Antibiotic Form <Amena Pruitt APRN - Last Filed: 08/30/24 14:09> Additional Instructions: Your EKG today in the emergency department showed no acute changes compared to your EKGs on file. Continue to hydrate well. Have close follow-up with your primary care physician. If you have any worsening symptoms please call or return to the emergency department <Amena Pruitt APRN - Last Filed: 08/30/24 14:09> Patient Language: Yoruba <Amena Pruitt APRN - Last Filed: 08/30/24 14:09> Follow-up/Referrals: PHYSICIAN NOT ON STAFF,NONSTAFF [Primary Care Provider] - <Amena Pruitt APRN - Last Filed: 08/30/24 14:09> Stand Alone Forms: Work/School Release IP <Amena Pruitt APRN - Last Filed: 08/30/24 14:09>
--- OUTSIDE RECORDS SUMMARY | 2024-08-30 14:12 | XMS_ITS | Continuity of Care Document ---
Author Organization [facility] Address [address] [place] [address] Phone Care Team Providers Care Hide Splitter Name Role Phone Unavailable Unavailable Unavailable Procedures Procedure Date Balance Transfer Work Comp Advance Directives Directive Yes / No Effective Date File Name No Information Encounters Encounter Description Practice Location Reason(s) For Visit Diagnoses Date Provider Providers Copied on Encounter [facility], [address], [place], [place], [address], [place] tel:[phone] [facility] No Information Sep-0 8-200 6 No Information Family History Family Member Type Diagnosis Age At Onset No Information Payers Payer name Insurance type Covered green party ID Remigio chau(s) Bambi [facility] Medical Management [id number] Social History Type Description Quantity Date Captured [...]
--- OUTSIDE RECORDS SUMMARY | 2024-08-30 14:12 | XMS_ITS | Continuity of Care Document ---
Author Organization [facility] Address [address] [place] [address] Phone Care Team Providers Care Category Development Analyst Name Role Phone Unavailable Unavailable Unavailable Procedures Procedure Date Office/outpatient visit[place]est, [facility] [place] X-ray exam of neck spine, 4+ views X-ray exam of thoracic spine 3 view Advance Directives Directive Yes / No Effective Date File Name No Information Encounters Encounter Description Practice Location Reason(s) For Visit Diagnoses Date Provider Providers Copied on Encounter Office/outpat ient visit,est, [facility], [address], [place], [place], [address], [place] tel:[phone] [facility] No Information 0-200 7 No Information Family History Family Member Type Diagnosis Age At Onset No Information Payers Payer name Insurance type Covered green party ID Authoriza tion(s) [facility] [id number] Social History Type Description Quantity Date [...]
--- OUTSIDE RECORDS SUMMARY | 2024-08-30 14:13 | XMS_ITS | Continuity of Care Document ---
Author Organization [facility] Address [address] [facility] [address] [place] [address] Phone Care Team Providers Care Manufacturer'S Representative Name Role Phone Joel Erazo MD Unavailable [...] Provider Providers Copied on Encounter [facility], [address], [address], tel:[phone] [facility] No Information Sep-0 0 Kacey Maldonado. [address], [place], [address]. tel:[phone] OFFICE/OUTPA TIENT VISIT NEW [facility], [address] [facility] [address], [place], [address], tel:[phone] [facility] Right lateral epicondyliti sBody mass index (BMI) 25.0-25.9, adult Sep-0 4-202 0 Pinannaaneni Joel. [address] [facility] [address], [place], [address]. tel:[phone] [facility], [address], [address], [place] tel:[phone] [facility] No Information 0 Cecilio Hanley. [address] [facility], [place], [place], [address]. tel:[phone] OFFICE/OUTPA TIENT VISIT EST [facility], [address], [address], [place] tel:[phone] [facility] Other intervertebr al disc displacement , lumbar regionSpinal stenosis, lumbar region without neurogenic claudication Myalgia, other site 0 Cecilio Hanley. [address] [facility], [place], [place], [id number]. tel:[phone] OFFICE/OUTPA TIENT VISIT EST [facility], [address], [address], [place] tel:[phone] [facility] Other chronic postop painSpondylo sis without myelopathy or radiculopath y, lumbosacral regionOther intervertebr al disc displacement , lumbar regionCervic algiaSpinal stenosis, lumbar region without neurogenic claudication 0 Cecilio Hanley. [address] [facility], [place], [place], [address]. tel:[phone] OFFICE/OUTPA TIENT VISIT EST [facility], [address] [place] [address], [place], [address], [place] tel:[phone] [facility] Other chronic postop painLow back painCervical sobia Dec- 9 Joslyn Perla. [address] [facility] [address], [place], [place], [address]. tel:[phone] OFFICE/OUTPA TIENT VISIT [facility], [address] [facility] [address], [place], [address], [place] tel:[phone] [facility] Body mass index (BMI) 25.0-25.9, adultSprain of left rotator cuff capsule, initial encounter 9 Magi Benito. [address] [facility] [address], [place], [place], [address]. tel:[phone] OFFICE/OUTPA TIENT VISIT [facility], [address] [facility] [address], [place], [address], [place] tel:[phone] [facility] Lumbago with sciatica, left sideOther intervertebr al disc displacement , lumbar regionPain in left shoulder 9 Joslyn Perla. [address] [facility] [address], [place], [place], [address]. tel:[phone] OFFICE/OUTPA TIENT VISIT [facility], [address] [facility] [address], [place], [address], [place] tel:[phone] [facility] Other intervertebr al disc displacement , lumbar regionLumbag o with sciatica, left sideLumbago with sciatica, right side 9 Joslyn Perla. [address] [facility] [address], [place], [place], [address]. tel:[phone] OFFICE/OUTPA TIENT VISIT [facility], [address] [facility] [address], [place], [address], [place] tel:[phone] [facility] Lumbago with sciatica, right sideLumbago with sciatica, left sideOther intervertebr al disc displacement , lumbar region May- 9 Yadira Mcbride. [address] [facility], [place], [place], [address]. [phone] OFFICE/OUTPA TIENT VISIT [facility], [address] [facility] [address], [place], [address], [place] tel:[phone] [facility] Lumbago with sciatica, left sideLumbago with sciatica, right side 9 Yadira Mcbride. [address] [place], [place], [address]. tel:[phone] OFFICE/OUTPA TIENT VISIT [facility], [address] [facility] [address], [address], [place] tel:[phone] [facility] Spondylosis without myelopathy or radiculopath y, cervical regionSpondy losis of lumbosacral region without myelopathy or radiculopath yCervicalgia Other specified dorsopathies , cervical regionLow back pain 9 Joslyn Perla. [address] [employer] [address], [place], [place], [address]. tel:[phone] OFFICE/OUTPA TIENT VISIT [facility], [address] [place] [address], [address], [place] tel:[phone] [facility] Low back painCervical giaSpondylos is without myelopathy or radiculopath y, cervical regionSpondy losis of lumbosacral region without myelopathy or radiculopath y 8 Joslyn Perla. [address] [facility] [employer] [address], [place], [place], [address]. tel:[phone] OFFICE/OUTPA TIENT VISIT [facility], [address] [facility] [address], [address], [place] tel:[phone] [facility] Spondylosis of lumbosacral region without myelopathy or radiculopath ySpondylosis without myelopathy or radiculopath y, cervical regionOther specified dorsopathies , cervical regionCervic algiaLow back painBody mass index (BMI) 26.0-26.9, adult 8 Joslyn Perla. [address] [employer] [address], [place], [place], [address]. tel:[phone] OFFICE/OUTPA TIENT VISIT [facility], [address] [facility] [address], [place], [address], [place] tel:[phone] [facility] CervicalgiaS regis enthesopathy of thoracic regionOther specified dorsopathies , cervical region Apr-0 8 Joslyn Perla. [address] [employer] [address], [place], [place], [address]. tel:[phone] OFFICE/OUTPA TIENT VISIT [facility], [address] [facility] [address], [address], [place] tel:[phone] [facility] Body mass index (BMI) 25.0-25.9, adultLow back painSpondylo sis of lumbosacral region without myelopathy or radiculopath y 8 Joslyn Perla. [address] [place] [address] [address], [place], [place], [address]. tel:[phone] OFFICE/OUTPA TIENT VISIT [facility], [address], [address], [place] tel:[phone] [facility] Low back painCervical sobai 7 Yadira Mcbride. [address] [place] [address], [id number]. tel:[phone] OFFICE/OUTPA TIENT VISIT [facility], [address] [facility] [address], [place], [address], [place] tel:[phone] [facility] CervicalgiaL ow back painSpondylo sis of lumbosacral region without myelopathy or radiculopath yOther chronic postprocedur al pain Sep-0 7 Yadira Mcbride. [address] [place] [address], [id number]. tel:[phone] Referring Provider: Reed May, [address] [place] [address], [address] . tel:[phone] OFFICE/OUTPA TIENT VISIT [facility], [address] [place] [address], [address], [place] tel:[phone] [facility] CervicalgiaR adiculopathy , cervical regionOther chronic postprocedur al pain Sep- 8- 7 Joslyn Perla. [address] [facility] [address], [place], [place], [address]. tel:[phone] [facility], [address] [place] [address] [address], [place], [address], [place] tel:[phone] O - [facility] [address] CervicalgiaO ther chronic postprocedur al painRadiculo jabier, cervical region Sep- 4-201 7 Yadira Mcbride. [address] [place], [place], [address]. tel:[phone] OFFICE/OUTPA TIENT VISIT EST [facility], [address] [place] [address], [address], [place] tel:[phone] [facility] Spondylosis of lumbar region without myelopathy or radiculopath yLow back pain 3 0-201 7 Joslyn Watersy. [address] [place], [place] [address], [place], [place], [address]. tel:[phone] OFFICE/OUTPA TIENT VISIT [facility], [address] [place] [address], [address], [place] tel:[phone] [facility] Other chronic postprocedur al painCervical giaLow back painSpondylo sis of lumbar region without myelopathy or radiculopath y Apr-0 8-201 7 Yadirablake Mcbride. [address] [place], [place], [address]. tel:[phone] OFFICE/OUTPA TIENT VISIT [facility], [address] [place] [address], [address], [place] tel:[phone] [facility] Spondylosis of lumbar region without myelopathy or radiculopath yLow back painCervical giaOther chronic postprocedur al pain Feb-2 5-201 7 Yadirablake Mcbride. [address] [place], [place], [address]. tel:[phone] [facility], [address] [place] [address], [address], [place] tel:[phone] [facility] Low back painSpondylo sis of lumbar region without myelopathy or radiculopath y Feb-0 9-201 7 Yadira Mcbride. [address] [place], [place], [address]. tel:[phone] OFFICE/OUTPA TIENT VISIT [facility], [address], [address], [place] tel:[phone] [facility] Low back painSpondylo sis of lumbar region without myelopathy or radiculopath yMyalgiaSpin al enthesopathy of lumbar region 6 Joslyn Perla. [address] [place] [address] [address], [place], [place], [address]. tel:[phone] OFFICE/OUTPA TIENT VISIT [facility], [address], [address], [place] tel:[phone] [facility] Lumbago with sciatica, right sideLow back painPain in thoracic spineSpondyl osis of lumbar region without myelopathy or radiculopath y 6 Joslyn Perla. [address] [place] [address] [address], [place], [place], [address]. tel:[phone] OFFICE/OUTPA TIENT VISIT [facility], [address], [address], [place] tel:[phone] [facility] CervicalgiaL umbago with sciatica, right sideOther intervertebr al disc displacement , lumbar regionOther chronic postprocedur al pain 6 Yadira Mcbride. [address] [place], [place], [address]. tel:[phone] OFFICE/OUTPA TIENT VISIT [facility], [address] [place] [address], [address], [place] tel:[phone] [facility] Other intervertebr al disc displacement , lumbar regionCervic algiaRadicul opathy, cervical regionLumbag o with sciatica, right sideLumbago with sciatica, left sideOther chronic postprocedur al pain 6 Joslyn Perla. [address] [place] [address] [address], [place], [place], [address]. tel:[phone] [facility], [address], [address], [place] tel:[phone] [facility] Spondylosis of lumbar region without myelopathy or radiculopath yLow back pain May-1 0-201 6 Yadira Reed. [address] [place], [place], [address]. tel:[phone] OFFICE/OUTPA TIENT VISIT EST [facility], [address], [address], [place] tel:[phone] [facility] Low back painSpondylo sis of lumbar region without myelopathy or radiculopath y May-0 3-201 6 Joslyn Perla. [address] [place] [address] [address], [place], [place], [address]. tel:[phone] OFFICE/OUTPA TIENT VISIT EST [facility], [address] [place] [address], [address], [place] tel:[phone] [facility] Spondylosis of lumbar region without myelopathy or radiculopath yLow back pain Apr-2 6-201 6 Yadira Reed. [address] [place], [place], [address]. tel:[phone] [facility], [address] [place] [address], [address], [place] tel:[phone] [facility] Low back painSpondylo sis of lumbar region without myelopathy or radiculopath y Apr-0 4-201 6 Yadira Reed. [address] [place], [place], [address]. tel:[phone] OFFICE/OUTPA TIENT VISIT EST [facility], [address] [place] [address], [address], [place] tel:[phone] [facility] Low back painSpondylo sis of lumbar region without myelopathy or radiculopath ySpondylosis without myelopathy or radiculopath y, cervical regionCervic algia Apr- 8- 6 Joslyn Perla. [address] [place] [address] [address], [place], [place], [address]. tel:[phone] [facility], [address], [address], [place] tel:[phone] [facility] Spondylosis without myelopathy or radiculopath y, cervical regionSpondy losis of lumbar region without myelopathy or radiculopath yLow back painCervical sobia Apr- 8- 6 Yadira Reed. [address] [place], [place], [address]. tel:[phone] OFFICE/OUTPA TIENT VISIT EST [facility], [address] [place] [address], [address], [place] tel:[phone] [facility] Other chronic painSpondylo sis without myelopathy or radiculopath y, cervical regionSpondy losis of lumbar region without myelopathy or radiculopath yCervicalgia Low back pain 6 Yadira Reed. [address] [place], [place], [address]. tel:[phone] [facility], [address] [place] [address], [address], [place] tel:[phone] [facility] Other chronic painSpondylo sis without myelopathy or radiculopath y, cervical regionCervic algia 2- 6 Yadira Reed. [address] [place], [place], [address]. tel:[phone] OFFICE/OUTPA TIENT VISIT [facility], [address] [place] [address], [address], [place] tel:[phone] [facility] Spondylosis without myelopathy or radiculopath y, cervical regionCervic algiaOther chronic painSpinal enthesopathy , lumbar region Mar- 6-201 6 Yadira Reed. [address] [place] [address], [id number]. tel:[phone] OFFICE/OUTPA TIENT VISIT [facility], [address], [address], [place] tel:[phone] [facility] CervicalgiaL ow back painOther specified dorsopathies , cervical regionRadicu lopathy of thoracic region 0 4201 6 Joslyn Perla. [address] [facility] [address], [place], [place], [address]. tel:[phone] OFFICE/OUTPA TIENT VISIT [facility], [address], [address], [place] tel:[phone] [facility] Low back painOther specified dorsopathies , cervical regionCervic algiaSpinal enthesopathy , lumbar region 0-201 5 Joslyn Perla. [address] [facility] [address], [place], [place], [address]. tel:[phone] OFFICE/OUTPA TIENT VISIT [facility], [address], [address], [place] tel:[phone] [facility] Other specified dorsopathies , cervical regionSpinal enthesopathy , lumbar regionLow back painCervical sobia 6 5 Joslyn Perla. [address] [facility] [address], [place], [place], [address]. tel:[phone] OFFICE/OUTPA TIENT VISIT [facility], [address] [place] [address], [address], [place] tel:[phone] [facility] Other chronic postoperativ e painEnthesop athy, spinalCervic al spondylosis without myelopathyCe rvicalgiaLum bago 6- 5 Yadira Mcbride. [address] [place], [place], [address]. tel:[phone] [facility], [address] [place] [address], [address], [place] tel:[phone] [facility] f/u L thumb fx (chief complaint) Closed fracture of middle or proximal phalanx or pTrigger finger (acquired) 5 Fatimah Kitchen. [address] [place], [place], [address]. tel:[phone] OFFICE/OUTPA TIENT VISIT [facility], [address], [address], [place] tel:[phone] [facility] eval L thumb fx (chief complaint) Closed fracture of middle or proximal phalanx or p 5 Fatimah Fidelina. [address] [place], [place], [address]. tel:[phone] OFFICE/OUTPA TIENT VISIT [facility], [address], [address], [place] tel:[phone] [facility] Other chronic postoperativ e painEnthesop athy, spinalMuscul oskeletal disorder and symptoms referable to neckCervical giaLumbago 5 Yadira Mcbride. [address] [place], [place], [address]. tel:[phone] OFFICE/OUTPA TIENT VISIT [facility], [address], [address], [place] tel:[phone] [facility] Musculoskele abdoulaye disorder and symptoms referable to neckCervical giaOther chronic postoperativ e painCervical spondylosis without myelopathy 5 Joslyn Perla. [address] [facility], [place], [address]. tel:[phone] OFFICE/OUTPA TIENT VISIT [facility], [address], [address], [place] tel:[phone] [facility] CervicalgiaL umbagoOther chronic postoperativ e pain 5 Yadira Mcbride. [address] [place], [place], [address]. tel:[phone] [facility], [address] [place] [address], [address], [place] tel:[phone] [facility] CervicalgiaL umbagoEnthes opathy, spinalCervic al spondylosis without myelopathyOt her chronic postoperativ e pain 5 Yadira Reed. [address] [place], [place], [address]. tel:[phone] [facility], [address] [place] [address], [address], [place] tel:[phone] [facility] Cervical spondylosis without myelopathy 5 Yadira Reed. [address] [place], [place], [address]. tel:[phone] OFFICE/OUTPA TIENT VISIT [facility], [address] [place] [address], [address], [place] tel:[phone] [facility] CervicalgiaC ervical spondylosis without myelopathyMu sculoskeleta l disorder and symptoms referable to neck 4 Joslyn Perla. [address] [place], [place] [address], [place], [address]. tel:[phone] OFFICE/OUTPA TIENT VISIT [facility], [address] [place] [address], [address], [place] tel:[phone] [facility] Lumbago - 4 Yadira Reed. [address] [place], [place], [address]. tel:[phone] OFFICE/OUTPA TIENT VISIT [facility], [address] [place] [address], [address], [place] tel:[phone] [facility] LumbagoSpond ylosis of lumbar region without myelopathy orCervical spondylosis without myelopathyCe rvicalgia 0-201 4 Joslyn Perla. [address] [facility] [address], [place], [address]. tel:[phone] OFFICE/OUTPA TIENT VISIT [facility], [address] [place] [address], [facility], tel:[phone] [facility] NECK FOLLOW UP (chief complaint)T PI LASTED 2 WEEKS - PAIN HAS NOW RETURNED (chief complaint)S TILL UNABLE TO SLEEP (chief complaint)D OESNT SEE A DIFFERENCE WITH LYRICA (chief complaint) CervicalgiaE nthesopathy, spinalOther chronic postoperativ e painCervical spondylosis without myelopathyLo w back pain 4 Yadira Mcbride. [address] [place], [place], [address]. tel:[phone] OFFICE/OUTPA TIENT VISIT [facility], [address] [place] [address], [facility], tel:[phone] [facility] Other chronic postoperativ e painEnthesop athy, spinalCervic algia 4 Yadira Mcbride. [address] [place], [place], [address]. tel:[phone] Family History Family Member Type Diagnosis Age At Onset Mother Problem (finding) Alive and well Mother Problem (finding) Alive and well Mother Problem (finding) Alive and well Mother Problem (finding) Alive and well Payers Payer name Insurance type Covered constitution party ID Authorvannessaa titracey(s) [employer] Access PPO E2 OT [id number] Social History Type Description Quantity Date Captured [...] JNT Appointment date/timeframe: 03/02/2014 ordered Referral Ordered: DESTROY CERV/THOR FACET JNT Bilateral spine, cervical Appointment date/timeframe: 12/19/2013 ordered Referral Ordered: MRI SPI CANAL&CNTS LMBR C-MATRL Bilateral spine, lumbar ordered Nutrition Recommendation Nutrition / feed ing [...] Information Instructions Date Instruction Additional Infor mation Giving encouragement to exercise Related to Body mass index (BMI) 25.0-25.9, adult Call for increase in pain Relate d [...] to Body mass index (BMI) 26.0-26.9, adult Activity as tolerated. Related t o Spondylosis of lumbosacral region without myelopathy or radiculopathy Giving encouragement to exercise Related to Body mass index (BMI) 25.0-25.9, adult Avoid prolonged bed rest. Relate d to [...]
[2024-08-30 14:26] LABS: Hematocrit 46.3 % (42.0-52.0); Hemoglobin 16.0 g/dL (14.0-18.0); Immature Granulocyte Percent A 0.2 % (0-0.5); Immature Platelet Fraction Pct 4.1 % (0.9-11.2); Lymphocytes Absolute Auto 0.91 K/mm3 (0.9-3.2); Mean Corpuscular HGB Conc 34.6 g/dl (32-36); Mean Corpuscular Hemoglobin 31.4 pg (26-34); Mean Corpuscular Volume 90.8 fl (80-100); Nucleated Red Blood Cells Absolute Auto 0.000 K/mm3 (0.0-0.012); Nucleated Red Blood Cells Perc 0.0 % (0.0-0.2); Platelet Count Result 143 k/mm3 (150-375); Red Blood Count 5.10 M/mm3 (4.6-6.20); White Blood Count 5.2 K/mm3 (4.5-10.0)
[2024-08-30 14:43] LABS: INR 1.1; Partial Thromboplastin Time 30.1 Seconds (22.3-36.8); Prothrombin Time 14.5 Seconds (11.1-14.7)
[2024-08-30 14:44] LABS: Alanine Aminotransferase 39 U/L (6-50); Albumin Level 4.4 g/dL (3.5-5.1); Alkaline Phosphatase 60 U/L (38-126); Anion Gap 7 mmol/L (4-12); Aspartate Amino Transferase 44 U/L (17-59); Bilirubin,Total 2.0 mg/dL (0.2-1.3); Blood Urea Nitrogen 15 mg/dL (9-20); Calcium 9.1 mg/dL (8.4-10.2); Carbon Dioxide 27 mmol/L (22-30); Chloride 104 mmol/L (98-107); Estimated CRCL calculation 68 ml/min; Estimated Glomerular Filt Rate 57; Glucose 86 mg/dL (65-110); Lipase 50 U/L (23-300); Potassium 4.0 mmol/L (3.4-5.0); Sodium 138 mmol/L (137-145); Total Protein 7.0 g/dL (6.3-8.2)
[2024-08-30 14:54] LABS: Troponin I < 0.012 ng/mL (0.000-0.034)
--- NOTE | 2024-08-30 16:38 | ECG_ITS ---
Test Date: 2024-08-30 16:40:26 Measurements Intervals [place]berg Rate: 47 P: 31 MO: 176 QRS: -48 QRSD: 110 T: 62 QT: 446 QTc: 396 Interpretive Statements SINUS BRADYCARDIA POSSIBLE RIGHT VENTRICULAR CONDUCTION DELAY [RSR (QR) IN V1/V2] LEFT ANTERIOR FASCICULAR BLOCK [QRS AXIS <= -45, QR IN I, RS IN II] POSSIBLE LATERAL MYOCARDIAL INFARCTION , OF INDETERMINATE AGE [30 ms Q WAVE IN I/aVL/V5/V6] ABNORMAL ECG Electronically Signed On 08-31-2024 09:57:51 CDT by Donta Roberts M.D.
[2024-08-30 16:41] VITALS: BP 121/76; PULSE 53; RESP 16; O2SAT 100
[2024-08-30 17:11] LABS: Troponin I < 0.012 ng/mL (0.000-0.034)
[2024-08-30 19:18] VITALS: BP 126/78; PULSE 50; RESP 16; TEMP 36.6; O2SAT 99
== END 2024-08-30 19:20 | disposition home or self-care (01) ==
PROVIDERS: Emergency Provider Emergency Medicine
DX: R94.31 Abnormal electrocardiogram [ECG] [EKG] (principal); R00.1 Bradycardia, unspecified; I44.4 Left anterior fascicular block; I45.10 Unspecified right bundle-branch block
CPT/HCPCS: 36415; 71046; 80053; 83690; 84484; 85025; 85055; 85610; 85730; 93005; 96360; 99284